=== PATIENT | female | born 1965 | race Hispanic/Latino ===

== ENCOUNTER 2022-05-10 14:17 | Emergency (ER) | payer SELFPAY ==
[2022-05-10] MEDS ORDERED: ACETAMINOPHEN 500 MG TAB ONE (15:36)
[2022-05-10] MEDS ORDERED: METOCLOPRAMIDE 10 MG/2mL INJ ONE (15:36)
[2022-05-10] MEDS ORDERED: NA CHLORIDE 0.9% 1,000 ML ONE (15:36)
[2022-05-10 15:40] LABS: Absolute Lymphocytes (CBC) 0.7 K/uL (0.7-4.9); Hematocrit 41.5 % (36.0-45.0); Lymphocytes % 6.8 % (15.3-44.8); MPV 6.8 fL (7.6-11.3); RBC Red Blood Cell Count 4.93 M/uL (3.86-4.86)
[2022-05-10 16:05] LABS: Bilirubin Total 0.5 mg/dL (0.2-1.0); Potassium 4.2 mmol/L (3.5-5.1); Protein, Total 8.3 g/dL (6.4-8.2)
[2022-05-10] MEDS ORDERED: dexAMETHasone 10 MG/ML VIAL ONE (16:25)
--- NOTE | 2022-05-10 16:51 | RAD REPORT ---
EXAM DESCRIPTION: CT - Head Brain Wo Cont - 05/10/2022 4:37 pm CLINICAL HISTORY: Headache COMPARISON: None TECHNIQUE: Computed axial tomography of the head was obtained. IV contrast was not requested. All CT scans are performed using dose optimization technique as appropriate and may include automated exposure control or mA/KV adjustment according to patient size. FINDINGS: Blood is present within the pontine cistern, ambient cistern and left sylvian cistern. The ventricles are normal in caliber. No extra-axial fluid collection is noted. Fluid within the sinuses/ mastoids is not seen. Bilateral scalp lesions. Largest measures 10 millimeters . These are nonspecific and should be correl ated clinically. Followup ultrasound in 3-6 months would be helpful to assess stability IMPRESSION: Subarachnoid bleed. 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 on May 10, 2022
--- NOTE | 2022-05-10 17:06 | EDPHYS ---
Physician Documentation [facility] Name: Kyler Tong Age: 57 yrs Sex: Female : 1965 Arrival Date: 05/10/2022 Time: 14:40 Bed 11 Private MD: ED Physician Morgan Christian HPI: 05/10 15:11 This 57 yrs old Female presents to ER via EMS with complaints of Headache. jr11 15:11 The patient complains of pain to the left side of head and right side of head. The jr11 patient describes the headache as aching, constant, insidious, denies worse or thunderclap. Onset: The symptoms/episode began/occurred yesterday. Associated signs and symptoms: Pertinent positives: nausea, vomiting, diarrhea NBNM x 1 day, improving 3 episodes today . Severity of symptoms: At its worst the pain was a " 9" out of "10", in the emergency department the pain a " 9" out of "10". Headache History: The patient has had previous headaches and this one is similar to previous episodes, and this one is more severe than previous episodes. The symptoms are alleviated by nothing. the symptoms are aggravated by nothing. N/V/D now with WYNN, no fever. Historical: - Allergies: 18:02 No Known Allergies; ld1 - Home Meds: 18:02 None [Active]; ld1 - PMHx: 18:02 None; ld1 - PSHx: 18:02 None; ld1 - Immunization history:: Client reports receiving the 2nd dose of the Covid vaccine. - Social history:: Smoking status: Patient denies any tobacco usage or history of. ROS: 15:11 All other systems are negative. jr11 Exam: 15:11 Constitutional: This is a well developed, well nourished patient who is awake, alert, jr11 and in no acute distress. Head/Face: Normocephalic, atraumatic. Eyes: Extra-ocular motions intact. Lids and lashes normal. Conjunctiva and sclera are non-icteric and not injected. Cornea within normal limits. Periorbital areas with no swelling, redness, or edema. ENT: Nares patent. No nasal discharge, no septal abnormalities noted. Oropharynx with no redness, swelling, or masses, exudates, or evidence of obstruction, uvula midline. Mucous membranes moist. Neck: Trachea midline, no thyromegaly or masses palpated, and no cervical lymphadenopathy. Supple, full range of motion without nuchal rigidity, or vertebral point tenderness. No Meningismus. Chest/axilla: Normal chest wall appearance and motion. Nontender with no deformity. No lesions are appreciated. Cardiovascular: Regular rate and rhythm with a normal S1 and S2. No gallops, murmurs, or rubs. Normal PMI, no JVD. No pulse deficits. Respiratory: Lungs have equal breath sounds bilaterally, clear to auscultation and percussion. No rales, rhonchi or wheezes noted. No increased work of breathing, no retractions or nasal flaring. Abdomen/GI: Soft, non-tender, with normal bowel sounds. No distension or tympany. No guarding or rebound. No evidence of tenderness throughout. Back: No spinal tenderness. No costovertebral tenderness. Full range of motion. MS/ Extremity: Pulses equal, no cyanosis. Neurovascular intact. Full, normal range of motion. Neuro: Awake and alert, GCS 15, oriented to person, place, time, and situation. No gross motor or sensory deficits. Vital Signs: 14:50 BP 145 / 93; Pulse 84; Resp 17; Temp 97.9; Pulse Ox 97% ; Weight 87.54 kg; Height 5 ft. ll1 1 in. (154.94 cm); Pain 9/10; 15:45 BP 129 / 89; Pulse 86; Resp 18; Pulse Ox 98% on R/A; ld1 17:18 BP 162 / 91; Pulse 86; Resp 18; Pulse Ox 100% on R/A; ld1 17:36 BP 148 / 86; Pulse 85; Resp 18; Pulse Ox 100% on R/A; ld1 17:51 BP 143 / 84; ld1 18:02 BP 143 / 81; Pulse 80; Resp 20; Pulse Ox 98% on R/A; ld1 18:14 BP 136 / 87; Pulse 93; Resp 25; Pulse Ox 99% on R/A; ld1 18:23 BP 136 / 81; Pulse 91; Resp 18; Pulse Ox 100% on R/A; Pain 0/10; ld1 14:50 Body Mass Index 36.47 (87.54 kg, 154.94 cm) ll1 MDM: 15:11 Differential diagnosis: 57-year-old nausea vomiting diarrhea, now with a headache, jr11 headache without any red flags, insidious in onset, denies thunderclap denies worse. Headache likely caused by volume depletion. We will treat with a headache cocktail, hydrate, reassess. Nausea vomiting diarrhea, likely viral gastroenteritis given no fever, no blood no mucus. Data reviewed: vital signs, nurses notes. 15:20 Patient medically screened. [facility] 17:02 ED course: Pt's WYNN improved with dex, nausea improved, +SAH, will [place] [facility] center. jr11 17:13 ED course: Per neuroICU have cardene available, start if BP >140, pt to go neuro ICU [address] 05/10 15:01 Order name: CBC with Diff [facility] 05/10 15:01 Order name: CMP; Complete Time: 16:06 [facility] 05/10 15:01 Order name: Lipase; Complete Time: 16:06 [facility] 05/10 16:11 Order name: CT Head Brain wo Cont; Complete Time: 16:53 [facility] 05/10 17:08 Order name: COVID-19 SARS RT PCR (Document "Date of Onset" if Symptomatic) 05/10 15:01 Order name: IV Saline Lock; Complete Time: 15:28 [facility] 05/10 15:01 Order name: Labs collected and sent; Complete Time: 15:28 [facility] Administered Medications: 15:37 Drug: NS 0.9% 1000 ml Route: IV; Rate: 1 bolus; Site: right antecubital; ld1 15:37 Drug: Reglan (metoCLOPramide) 10 mg Route: IVP; Site: right antecubital; ld1 15:37 Drug: Tylenol 1000 mg Route: PO; ld1 16:11 CANCELLED (Duplicate Order): Dexamethasone 10 mg/kg IVP once; (not to exceed 40 mg) jr11 16:20 Not Given (unavailablel): Compazine (prochlorperazine) 10 mg IVP once ld1 16:22 Drug: Dexamethasone 10 mg Route: IVP; Site: right antecubital; ld1 17:27 Drug: niCARdipine 5 mg/hr Route: IV; Rate: Titrate; Site: right antecubital; ld1 17:51 Follow up: BP 143 / 84 ld1 18:14 Follow up: BP 136 / 87; Pulse 93 bpm; Resp 25 bpm; Pulse Ox 99% RA; Response: Blood ld1 pressure is lowered; Rate change 5 mg/hr Disposition Summary: 05/10/22 17:05 Transfer Ordered Transfer Location: [facility] jr11 Reason: Higher level of care jr11 Condition: Serious jr11 Problem: new jr11 Symptoms: are unchanged jr11 Accepting Physician: [facility] neuro(05/10/22 18:24) ld1 Diagnosis - Nontraumatic subarachnoid hemorrhage, unspecified jr11 Forms: - Medication Reconciliation Form jr11 - SBAR form jr11 Critical care time excluding procedures: 17:13 Critical care time: Bedside Care: 15 minutes, Consultation: 10 minutes, Family jr11 Intervention: 6 minutes. Total time: 31 minutes Signatures: Dispatcher [employer] EDAdore Virk RN RN ll1 Kendra Ty RN RN ld1 Morgan Christian MD MD jr11 Corrections: (The following items were deleted from the chart) 16:11 16:11 Dexamethasone 10 mg/kg IVP once; (not to exceed 40 mg) ordered. jr11 jr11 18:24 17:05 [facility] neuro jr11 ld1
--- NOTE | 2022-05-10 17:06 | ER ---
Nurse's Notes [facility] Name: Kyler Tong Age: 57 yrs Sex: Female : 1965 Arrival Date: 05/10/2022 Time: 14:40 Bed 11 Private MD: Diagnosis: Nontraumatic subarachnoid hemorrhage, unspecified Presentation: 05/10 14:50 Chief complaint: Patient states: N/V/D for 2 days. Severe WYNN today. [place] hot, but no ll1 temp taken. Coronavirus screen: Vaccine status: Patient reports being unvaccinated. Client denies travel out of the [place] in the last 14 days. diarrhea, fatigue, headache, nausea, vomiting. Client presents with at least one sign or symptom that may indicate coronavirus-19. Standard/surgical mask placed on the client. Ebola Screen: Patient denies travel to an Ebola-affected area in the 21 days before illness onset. Ebola Screen: Patient denies travel to an Ebola-affected area in the 21 days before illness onset. Initial Sepsis Screen: Does the patient meet any 2 criteria? No. Patient's initial sepsis screen is negative. Does the patient have a suspected source of infection? Yes: Acute abdominal pain. Risk Assessment: Do you want to hurt yourself or someone else? Patient reports no desire to harm self or others. Onset of symptoms was May 09, 2022. 14:50 Method Of Arrival: EMS [facility] 14:50 Acuity: LOUIE 3 ll1 Triage Assessment: 14:57 General: Appears uncomfortable, ill, Behavior is calm, cooperative, appropriate for [facility] age. Pain: Complains of pain in head Pain currently is 9 out of 10 on a pain scale. Pain began 1 day ago. Also complains of nausea. Neuro: Reports dizziness, headache. GI: Reports cramping, diarrhea, nausea, vomiting. 17:43 Headache History: Denies prior headaches. ll1 Historical: - Allergies: 18:02 No Known Allergies; ld1 - Home Meds: 18:02 None [Active]; ld1 - PMHx: 18:02 None; ld1 - PSHx: 18:02 None; ld1 - Immunization history:: Client reports receiving the 2nd dose of the Covid vaccine. - Social history:: Smoking status: Patient denies any tobacco usage or history of. Screenin:24 Abuse screen: Denies threats or abuse. Denies injuries from another. Nutritional ld1 screening: No deficits noted. Tuberculosis screening: No symptoms or risk factors identified. Fall Risk None identified. Assessment: 15:45 General: Appears in no apparent distress. comfortable, Behavior is calm, cooperative, ld1 appropriate for age. Pain: Complains of pain in face Pain does not radiate. Pain currently is 7 out of 10 on a pain scale. Quality of pain is described as throbbing. Neuro: Level of Consciousness is awake, alert, obeys commands, Oriented to person, place, time, situation. Cardiovascular: Capillary refill < 3 seconds Patient's skin is warm and dry. Rhythm is regular. Respiratory: Airway is patent Respiratory effort is even, unlabored. GI: Abdomen is flat, non-distended. : No signs and/or symptoms were reported regarding the genitourinary system. EENT: No signs and/or symptoms were reported regarding the EENT system. Derm: No signs and/or symptoms reported regarding the dermatologic system. Musculoskeletal: No signs and/or symptoms reported regarding the musculoskeletal system. 17:43 Reassessment: No changes from previously documented assessment. Patient and/or family ll1 updated on plan of care and expected duration. Pain level reassessed. Patient is alert, oriented x 3, equal unlabored respirations, skin warm/dry/pink. 18:02 Reassessment: Patient appears in no apparent distress at this time. Patient and/or ld1 family updated on plan of care and expected duration. Pain level reassessed. Patient is alert, oriented x 3, equal unlabored respirations, skin warm/dry/pink. 18:20 Reassessment: [facility] at bedside for transport to [facility]. 18:24 Reassessment: Patient is alert, oriented x 3, equal unlabored respirations, skin ld1 warm/dry/pink. [facility] at bedside. Report given. Pt being transferred to [facility]. Vital Signs: 14:50 BP 145 / 93; Pulse 84; Resp 17; Temp 97.9; Pulse Ox 97% ; Weight 87.54 kg; Height 5 ft. ll1 1 in. (154.94 cm); Pain 9/10; 15:45 BP 129 / 89; Pulse 86; Resp 18; Pulse Ox 98% on R/A; ld1 17:18 BP 162 / 91; Pulse 86; Resp 18; Pulse Ox 100% on R/A; ld1 17:36 BP 148 / 86; Pulse 85; Resp 18; Pulse Ox 100% on R/A; ld1 17:51 BP 143 / 84; ld1 18:02 BP 143 / 81; Pulse 80; Resp 20; Pulse Ox 98% on R/A; ld1 18:14 BP 136 / 87; Pulse 93; Resp 25; Pulse Ox 99% on R/A; ld1 18:23 BP 136 / 81; Pulse 91; Resp 18; Pulse Ox 100% on R/A; Pain 0/10; ld1 14:50 Body Mass Index 36.47 (87.54 kg, 154.94 cm) ll1 ED Course: 14:40 Patient arrived in ED. rg4 14:42 Morgan Christian MD is Attending Physician. jr11 14:50 Arm band placed on. ll1 14:56 Triage completed. ll1 15:28 Kendra Ty, KEVIN is Primary Nurse. ld1 16:24 Patient has correct armband on for positive identification. Placed in gown. Bed in low ld1 position. Call light in reach. Side rails up X2. hall monitor on. Pulse ox on. NIBP on. Door closed. Noise minimized. Warm blanket given. 16:24 No provider procedures requiring assistance completed. Inserted saline lock: 20 gauge ld1 in right antecubital area, using aseptic technique. Blood collected. 16:39 CT Head Brain wo Cont In Process Unspecified. EDMS 18:24 Patient transferred, IV remains in place. ld1 Administered Medications: 15:37 Drug: NS 0.9% 1000 ml Route: IV; Rate: 1 bolus; Site: right antecubital; ld1 15:37 Drug: Reglan (metoCLOPramide) 10 mg Route: IVP; Site: right antecubital; ld1 15:37 Drug: Tylenol 1000 mg Route: PO; ld1 16:11 CANCELLED (Duplicate Order): Dexamethasone 10 mg/kg IVP once; (not to exceed 40 mg) jr11 16:20 Not Given (unavailablel): Compazine (prochlorperazine) 10 mg IVP once ld1 16:22 Drug: Dexamethasone 10 mg Route: IVP; Site: right antecubital; ld1 17:27 Drug: niCARdipine 5 mg/hr Route: IV; Rate: Titrate; Site: right antecubital; ld1 17:51 Follow up: BP 143 / 84 ld1 18:14 Follow up: BP 136 / 87; Pulse 93 bpm; Resp 25 bpm; Pulse Ox 99% RA; Response: Blood ld1 pressure is lowered; Rate change 5 mg/hr Medication: 16:24 VIS not applicable for this client. ld1 Outcome: 17:05 ER care complete, transfer ordered by . jrSavita 17:43 Condition: stable ll1 17:43 Discharge instructions given to patient, Instructed on discharge instructions, follow up and referral plans. medication usage, Demonstrated understanding of instructions, follow-up care, medications, Prescriptions given X 2. 18:24 Transferred by helicopter to [facility]. ld1 18:24 Patient left the ED. ld1 Signatures: Dispatcher [employer] EDMS Emmy Grijalva RN RN ss Garcia, Rubi rg4 Adore Senior RN RN ll1 Kendra Ty RN RN ld1 Morgan Christian MD MD jr11 Corrections: (The following items were deleted from the chart) 17:44 17:42 BP 98 / 62; Pulse 72bpm; Resp 17bpm; Pulse Ox 100%; ll1 ll1 17:44 17:43 IV discontinued, intact, bleeding controlled, No redness/swelling at site. ll1 Pressure dressing applied, ll1 17:44 17:43 Discharged to home via wheelchair, ll1 ll1
[2022-05-10] MEDS ORDERED: Nicardipine/NS 25 MG/250 ML KIT IV ONE (17:21)
[2022-05-10 18:30] VITALS: TEMP 97.9
[2022-05-10 18:43] VITALS: BP 136/81; O2SAT 100
[2022-05-10 20:54] LABS: Blood Morphology Comment NOT SEEN (NOT SEEN); Platelet Estimate ADEQ; White Blood Cell Scan OK (OK)
== END 2022-05-10 18:24 | disposition short-term general hospital (02) ==
LOC: ER 14:17
DX: I60.9 Nontraumatic subarachnoid hemorrhage, unspecified (principal); R11.2 Nausea with vomiting, unspecified; Z20.822 Contact with and (suspected) exposure to COVID-19
CPT/HCPCS: 36415; 70450; 80053; 83690; 85025; 96374; 96375; 99285; J1100; J2765; J7030; U0003

== ENCOUNTER 2023-06-27 19:43 | Emergency (ER) | payer OTHER, SELFPAY ==
[2023-06-27 21:08] LABS: Absolute Lymphocytes (CBC) 1.5 K/uL (0.7-4.9); Lymphocytes % 17.6 % (15.3-44.8); MCV 85.5 fL (80-100); MPV 6.6 fL (7.6-11.3); RBC Red Blood Cell Count 4.67 M/uL (3.86-4.86)
[2023-06-27 21:25] LABS: Albumin 3.7 g/dL (3.4-5.0); Bilirubin Total 0.4 mg/dL (0.2-1.0); Potassium 3.5 mEq/L (3.5-5.1); Protein, Total 7.7 g/dL (6.4-8.2)
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
[2023-06-27 23:03] VITALS: TEMP 98.3; O2SAT 98
[2023-06-27 23:05] VITALS: BP 164/104
== END 2023-06-27 22:57 | disposition home or self-care (01) ==
LOC: ER 19:43
DX: S30.1XXA Contusion of abdominal wall, initial encounter (principal); V49.49XA Driver injured in collision with other motor vehicles in traffic accident, initial encounter
CPT/HCPCS: 85025; 36415; 80053; 70450; 72125; 71260; 74177; 99284; Q9967